=== PATIENT | female | born 1990 | race Caucasian/White ===

== ENCOUNTER 2023-11-03 19:35 | Emergency (ER) | payer MEDICAID ==
[~2023-11-03] VITALS: Ht 170.2 cm; Wt 61.2 kg
[2023-11-03 19:54] VITALS: BP 111/66; TEMP 99.5; O2SAT 100
[2023-11-03] MEDS ORDERED: MUPI15CR TP (20:22)
[2023-11-03] MEDS ORDERED: SULF1TAB48 PO (20:22)
[2023-11-03] MEDS: MUPIROCIN OINT 2% 22 GM TUBE TP ONE (20:35)
== END 2023-11-03 21:19 | disposition home or self-care (01) ==
LOC: ER 19:43
DX: L03.114 Cellulitis of left upper limb (principal); L03.113 Cellulitis of right upper limb; L03.811 Cellulitis of head [any part, except face]; Z88.0 Allergy status to penicillin; Z88.8 Allergy status to other drugs, medicaments and biological substances; Z60.2 Problems related to living alone